=== PATIENT | female | born 1990 | race African-American/Black ===

== ENCOUNTER 2017-10-20 15:33 | Emergency (ER) | payer SELFPAY ==
[~2017-10-20] VITALS: Ht 152.4 cm; Wt 54.4 kg
[2017-10-20] MEDS ORDERED: IBUPROFEN600 MG ORAL (16:50)
[2017-10-20 17:00] VITALS: BP 112/82
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
== END 2017-10-20 17:00 | disposition home or self-care (01) ==
LOC: EMR 16:02
DX: S46.912A Strain of unspecified muscle, fascia and tendon at shoulder and upper arm level, left arm, initial encounter (principal); Z91.018 Allergy to other foods; V79.50XA Passenger on bus injured in collision with unspecified motor vehicles in traffic accident, initial encounter; Y92.410 Unspecified street and highway as the place of occurrence of the external cause
CPT/HCPCS: 29240; 99283